=== PATIENT | female | born 1980 | race Caucasian/White ===

== ENCOUNTER 2019-11-22 04:37 | Inpatient (IN) | payer MEDICAID, OTHER ==
[2019-11-22] MEDS ORDERED: Dextrose 50% Abboject 50 ML SYRINGE SLOW IVP PRN (05:12)
[2019-11-22] MEDS ORDERED: Dextrose 5% in Water 1,000 ML IV PRN (05:12)
[2019-11-22] MEDS ORDERED: Nystatin Cream 30 GM TUBE TOP SCH (05:30)
[2019-11-22] MEDS ORDERED: Terbinafine 250 MG TAB PO SCH (06:00)
[2019-11-22] MEDS ORDERED: Acetaminophen 325 MG TAB PO PRN (06:41)
[2019-11-22] MEDS: Morphine 2 MG/ML SYRINGE SLOW IVP PRN ×3 (06:56→20:13)
[2019-11-22 07:32] VITALS: BMI 43.0
[2019-11-22] MEDS ORDERED: Aztreonam 1 GM in Sodium Chloride 0.9% 100 ML IVPB SCH (09:45)
[2019-11-22 10:05] LABS: #Eosinphils 0.2 thou/uL (0.0-0.7); #Lymphocytes 2.3 thou/uL (1.20-3.40); #Monocytes 0.5 thou/uL (0.11-0.59); #Neutrophils 6.9 thou/uL (1.40-6.50); %Basophils 0.2 % (0.0-1.0); %Lymphocytes 23.4 % (21.0-51.0); %Monocytes 4.5 % (0.0-10.0); %Neutrophils 69.8 % (42.0-75.0); Hemoglobin 12.8 g/dL (12.0-16.0); Mean Corpuscular HGB CONC 31.6 g/dL (32.0-36.0); Mean Corpuscular Hemoglobin 26.4 pg (27.0-31.0); Mean Corpuscular Volume 83.6 fL (78.0-98.0); Mean Platelet Volume 10.6 fL (7.4-10.4); Platelet Count 206 thou/uL (130-400); RBC Distribution Width 14.6 % (11.5-14.5); Red Blood Cell (RBC) Count 4.86 mill/uL (4.20-5.40); White Blood Cell (WBC) Count 9.9 thou/uL (4.8-10.8)
[2019-11-22 10:24] LABS: Anion Gap 12 mmol/L (10-20); BUN (Urea Nitrogen) 5 mg/dL (7.0-18.7); Calc. Creatinine Clearance 209 mL/min (70-130); Calcium 9.6 mg/dL (7.8-10.44); Carbon Dioxide 23 mmol/L (22-29); Chloride 102 mmol/L (98-107); Estimated GFR-MDRD Greater than 90; Glucose 437 mg/dL (70-105); Potassium 3.8 mmol/L (3.5-5.1); Sodium 133 mmol/L (136-145)
[2019-11-22] MEDS: HumaLOG 300 UNITS/3 ML VIAL SC PRN ×3 (13:00→20:18)
[2019-11-22] MEDS ORDERED: metroNIDAZOLE 500 MG in Premix Bag 1 BAG IVPB SCH (14:00)
[2019-11-22] MEDS: Pregabalin 50 MG CAP PO SCH ×2 (14:06→20:17)
[2019-11-22] MEDS: Clindamycin/D5W 900 MG in Premix Bag 1 BAG IVPB SCH ×2 (14:08→20:37)
[2019-11-22] MEDS ORDERED: PREGABALIN 200 MG PO SCH (15:00)
[2019-11-22] MEDS: HYDROcodone/Acetaminophen 5/325 mg Tablet PO PRN (15:40)
[2019-11-22] MEDS: Divalproex Sodium DR 500 MG TAB PO SCH (20:16)
[2019-11-22] MEDS: Amitriptyline HCl 25 MG TAB PO SCH (20:16)
[2019-11-22] MEDS: chlorproMAZINE HCl 25 MG TAB PO SCH (20:17)
[2019-11-22] MEDS: Aztreonam 1 GM in Sodium Chloride 0.9% 100 ML IVPB SCH (20:18)
--- NOTE | 2019-11-22 20:23 | PDOC.HHP ---
Hospitalist HPI - History of Present Illness Reddnessaround the vaginal area History of Present Illness: This patient is a 39-year-old female with past medical history of diabetes mellitus, migraine, fibromyalgia, and bipolar disorder who presented to the hospital with complaints of redness, swelling, and pain in the perineal area that has been progressing over the past several weeks. The patient denies fevers or chills. She was diagnosed by her regular doctor with a fungal infection and completed a course of Diflucan without improvement in her symptoms. Hospitalist ROS - Review of Systems All other systems reviewed; all pertinent +/- noted in HPI/Subj - Medication Medications: Active Medications Generic Name Dose Route Start Last Admin Trade Name Freq PRN Reason Stop Dose Admin Hydrocodone Bitart/Acetaminophen 1 tab 11/22/19 12:16 11/22/19 15:40 Axis 5/325 PO 1 tab Q4H PRN Administration Pain Amitriptyline HCl 25 mg 11/22/19 21:00 11/22/19 20:16 Elavil PO 25 mg HS NICOLA Administration Chlorpromazine HCl 75 mg 11/22/19 21:00 11/22/19 20:17 Thorazine PO 75 mg HS NICOLA Administration Divalproex Sodium 500 mg 11/22/19 21:00 11/22/19 20:16 Depakote PO 500 mg HS NICOLA Administration Aztreonam 1 gm/ Sodium 100 mls @ 100 mls/hr 11/22/19 21:00 11/22/19 20:18 Chloride IVPB 100 mls Q12HR NICOLA Administration Clindamycin Phosphate/Dextrose 50 mls @ 100 mls/hr 11/22/19 14:00 11/22/19 14 :08 900 mg/ Device IVPB 50 mls Q8HR NICOLA Administration Insulin Human Lispro 0 units 11/22/19 05:12 11/22/19 20:18 Humalog SC 11 unit .AGGRESSIVE SLIDING PRN Administration Aggressive Correctional Scale Morphine Sulfate 2 mg 11/22/19 06:41 11/22/19 20:13 Morphine SLOW IVP 2 mg Q4H PRN Administration Moderate to Severe Pain (4-10) Pregabalin 200 mg 11/22/19 15:00 11/22/19 20:17 Lyrica PO 200 mg TID NICOLA Administration Trazodone HCl 150 mg 11/22/19 21:00 11/22/19 20:16 Desyrel PO 150 mg HS NICOLA Administration Ziprasidone 160 mg 11/22/19 21:00 11/22/19 20:16 Geodon PO 160 mg HS NICOLA Administration Hospitalist History - Past Medical History Endocrine: reports: Diabetes - Past Surgical History Past Surgical History: reports: Cholecystectomy, - Family History Family History: reports: no pertinent history - Social History Smoking Status: Never smoker Alcohol: reports: None Drugs: reports: none - Exam General Appearance: awake alert ENT: normocephalic atraumatic Neck: supple Heart: RRR, no murmur, no gallops, no rubs Respiratory: CTAB, no wheezes, no rales, no ronchi Gastrointestinal: soft, non-tender Skin - other findings: Redness and swelling is present underneath the lower abdominal folds, perin Hospitalist Results - Labs Result Diagrams: 11/22/19 09:54 11/22/19 09:54 Lab results: WBC 9.9 thou/uL (4.8-10.8) 11/22/19 09:54 Hgb 12.8 g/dL (12.0-16.0) 11/22/19 09:54 Hct 40.6 % (36.0-47.0) 11/22/19 09:54 MCV 83.6 fL (78.0-98.0) 11/22/19 09:54 Plt Count 206 thou/uL (130-400) 11/22/19 09:54 Neutrophils % 69.8 % (42.0-75.0) 11/22/19 09:54 Sodium 133 mmol/L (136-145) L 11/22/19 09:54 Potassium 3.8 mmol/L (3.5-5.1) 11/22/19 09:54 Chloride 102 mmol/L (98-107) 11/22/19 09:54 Carbon Dioxide 23 mmol/L (22-29) 11/22/19 09:54 BUN 5 mg/dL (7.0-18.7) L 11/22/19 09:54 Creatinine 0.69 mg/dL (0.6-1.1) 11/22/19 09:54 Glucose 437 mg/dL (70-105) H 11/22/19 09:54 Calcium 9.6 mg/dL (7.8-10.44) 11/22/19 09:54 Hospitalist H&P A/P - Problem (1) Cellulitis of perineum Code(s): L03.315 - CELLULITIS OF PERINEUM Status: Acute (2) Intertriginous candidiasis Code(s): B37.2 - CANDIDIASIS OF SKIN AND NAIL Status: Acute (3) DM2 (diabetes mellitus, type 2) Status: Acute - Plan Plan: This appears to be a severe case of Izabella intertrigo with super imposed cellulitis complicated by diabetes mellitus. Clindamycin and aztreonam were initiated. Fluconazole and nystatin cream for Izabella. Insulin per sliding scale for diabetes.
[2019-11-22] MEDS ORDERED: traZODone HCl 150 MG TAB PO SCH (21:00)
[2019-11-23] MEDS: Clindamycin/D5W 900 MG in Premix Bag 1 BAG IVPB SCH ×3 (06:02→21:16)
[2019-11-23] MEDS: HumaLOG 300 UNITS/3 ML VIAL SC PRN ×3 (06:02→18:39)
[2019-11-23 06:05] LABS: #Eosinphils 0.2 thou/uL (0.0-0.7); #Lymphocytes 2.2 thou/uL (1.20-3.40); #Monocytes 0.4 thou/uL (0.11-0.59); #Neutrophils 5.4 thou/uL (1.40-6.50); %Basophils 0.6 % (0.0-1.0); %Eosinophils 2.5 % (0.0-10.0); %Lymphocytes 26.7 % (21.0-51.0); %Monocytes 5.2 % (0.0-10.0); %Neutrophils 65.1 % (42.0-75.0); Hemoglobin 12.6 g/dL (12.0-16.0); Mean Corpuscular HGB CONC 33.5 g/dL (32.0-36.0); Mean Corpuscular Hemoglobin 27.3 pg (27.0-31.0); Mean Corpuscular Volume 81.5 fL (78.0-98.0); Mean Platelet Volume 10.8 fL (7.4-10.4); Platelet Count 183 thou/uL (130-400); RBC Distribution Width 14.4 % (11.5-14.5); Red Blood Cell (RBC) Count 4.61 mill/uL (4.20-5.40); White Blood Cell (WBC) Count 8.3 thou/uL (4.8-10.8)
[2019-11-23 06:24] LABS: Anion Gap 11 mmol/L (10-20); BUN (Urea Nitrogen) 6 mg/dL (7.0-18.7); Calc. Creatinine Clearance 219 mL/min (70-130); Calcium 10.2 mg/dL (7.8-10.44); Carbon Dioxide 23 mmol/L (22-29); Chloride 105 mmol/L (98-107); Estimated GFR-MDRD Greater than 90; Glucose 350 mg/dL (70-105); Sodium 135 mmol/L (136-145)
[2019-11-23] MEDS: Aztreonam 1 GM in Sodium Chloride 0.9% 100 ML IVPB SCH ×2 (09:13→21:15)
[2019-11-23] MEDS: Terbinafine 250 MG TAB PO SCH (09:14)
[2019-11-23] MEDS: Fluconazole 100 MG TAB PO SCH (09:14)
[2019-11-23] MEDS: Enoxaparin Sodium 40 MG/0.4 ML SYRINGE SC SCH (09:14)
[2019-11-23] MEDS: Lisinopril 10 MG TAB PO SCH (09:14)
[2019-11-23] MEDS: Pregabalin 50 MG CAP PO SCH ×3 (09:22→21:14)
[2019-11-23] MEDS ORDERED: Insulin Glargine 50 UNITS in Pre-Filled Syringe 1 EACH SC SCH (13:15)
[2019-11-23] MEDS: Insulin Glargine 50 UNITS in Pre-Filled Syringe 1 EACH SC SCH ×2 (14:35→21:25)
[2019-11-23] MEDS: HYDROcodone/Acetaminophen 5/325 mg Tablet PO PRN (14:42)
--- NOTE | 2019-11-23 14:53 | PDOC.HOSPP ---
- Subjective Encounter Date: 11/23/19 Subjective: Pelvic area redness, swelling, and tenderness are improving. - Objective Vital Signs & Weight: Vital Signs (12 hours) Temp Pulse Resp BP BP Pulse Ox 11/23/19 11:24 97.8 F 88 20 114/74 93 L 11/23/19 09:25 93 L 11/23/19 09:15 93 L 11/23/19 09:14 114/69 11/23/19 07:19 98.3 F 93 20 114/69 91 L Weight Weight 267 lb I&O: 11/22/19 11/23/19 11/24/19 06:59 06:59 06:59 Intake Total 1590 Balance 1590 Result Diagrams: 11/23/19 05:33 11/23/19 05:33 Additional Labs: Accuchecks 11/23/19 11/23/19 11/22/19 11:33 04:35 20:01 POC Glucose 390 H 346 H 348 H 11/22/19 16:32 POC Glucose 344 H Hospitalist ROS - Medication Medications: Active Medications Generic Name Dose Route Start Last Admin Trade Name Freq PRN Reason Stop Dose Admin Hydrocodone Bitart/Acetaminophen 1 tab 11/22/19 12:16 11/23/19 14:42 [place] 5/325 PO 1 tab Q4H PRN Administration Pain Amitriptyline HCl 25 mg 11/22/19 21:00 11/22/19 20:16 Elavil PO 25 mg HS NICOLA Administration Chlorpromazine HCl 75 mg 11/22/19 21:00 11/22/19 20:17 Thorazine PO 75 mg HS NICOLA Administration Divalproex Sodium 500 mg 11/22/19 21:00 11/22/19 20:16 Depakote PO 500 mg HS NICOLA Administration Enoxaparin Sodium 40 mg 11/23/19 09:00 11/23/19 09:14 Lovenox SC Not Given 09 NICOLA Fluconazole 100 mg 11/23/19 09:00 11/23/19 09:14 Diflucan PO 100 mg DAILY NICOLA Administration Aztreonam 1 gm/ Sodium 100 mls @ 100 mls/hr 11/22/19 21:00 11/23/19 09:13 Chloride IVPB 100 mls Q12HR NICOLA Administration Clindamycin Phosphate/Dextrose 50 mls @ 100 mls/hr 11/22/19 14:00 11/23/19 14 :32 900 mg/ Device IVPB 50 mls Q8HR NICOLA Administration Insulin Glargine 50 units/ 0.5 mls @ 0 mls/hr 11/24/19 09:00 11/23/19 14:35 Miscellaneous Medication SC 0.5 mls QAM NICOLA Administration Insulin Glargine 50 units/ 0.5 mls @ 0 mls/hr 11/23/19 13:15 11/23/19 14:36 Miscellaneous Medication SC 11/23/19 15:00 Not Given [facility] Insulin Human Lispro 0 units 11/22/19 05:12 11/23/19 12:33 Humalog SC 13 unit .AGGRESSIVE SLIDING PRN Administration Aggressive Correctional Scale Lisinopril 10 mg 11/23/19 09:00 11/23/19 09:14 Zestril PO 10 mg DAILY NICOLA Administration Morphine Sulfate 2 mg 11/22/19 06:41 11/22/19 20:13 Morphine SLOW IVP 2 mg Q4H PRN Administration Moderate to Severe Pain (4-10) Pregabalin 200 mg 11/22/19 15:00 11/23/19 14:31 Lyrica PO 200 mg TID NICOLA Administration Sodium Chloride 10 ml 11/22/19 21:00 11/23/19 09:13 Flush - Normal Saline IVF 10 ml Q12HR NICOLA Administration Terbinafine HCl 250 mg 11/23/19 09:00 11/23/19 09:14 Lamisil PO 12/05/19 09:01 250 mg DAILY NICOLA Administration Trazodone HCl 150 mg 11/22/19 21:00 11/22/19 20:16 Desyrel PO 150 mg HS NICOLA Administration Ziprasidone 160 mg 11/22/19 21:00 11/22/19 20:16 Geodon PO 160 mg HS NICOLA Administration - Exam General Appearance: awake alert Eye: PERRL ENT: normocephalic atraumatic, no oropharyngeal lesions Neck: supple, no JVD Heart: RRR Respiratory: CTAB Gastrointestinal: soft, non-tender, non-distended Neurological: cranial nerve grossly intact, no weakness Hosp A/P (1) Cellulitis of perineum Code(s): L03.315 - CELLULITIS OF PERINEUM Status: Acute (2) Intertriginous candidiasis Code(s): B37.2 - CANDIDIASIS OF SKIN AND NAIL Status: Acute (3) DM2 (diabetes mellitus, type 2) Status: Acute - Plan * Cellulites improving. No evidence of sepsis. Continue current broad spectrum antibiotics and antifungals. * Uncntrolled sugar levels. Restart Lantus 50u BID. *DVT ppx with lovenox. * Ambulation encouraged. * The patient was reportedly drowsey this morning. DC night time trazodone.
[2019-11-23] MEDS: Amitriptyline HCl 25 MG TAB PO SCH (21:15)
[2019-11-23] MEDS: Morphine 2 MG/ML SYRINGE SLOW IVP PRN (21:15)
[2019-11-23] MEDS: chlorproMAZINE HCl 25 MG TAB PO SCH (22:11)
[2019-11-23] MEDS: Divalproex Sodium DR 500 MG TAB PO SCH (22:11)
[2019-11-24] MEDS: Clindamycin/D5W 900 MG in Premix Bag 1 BAG IVPB SCH ×3 (06:21→21:21)
[2019-11-24] MEDS: HumaLOG 300 UNITS/3 ML VIAL SC PRN ×3 (06:23→17:57)
[2019-11-24] MEDS: Fluconazole 100 MG TAB PO SCH (09:52)
[2019-11-24] MEDS: Aztreonam 1 GM in Sodium Chloride 0.9% 100 ML IVPB SCH ×2 (09:52→21:21)
[2019-11-24] MEDS: Lisinopril 10 MG TAB PO SCH (09:52)
[2019-11-24] MEDS: Insulin Glargine 50 UNITS in Pre-Filled Syringe 1 EACH SC SCH ×2 (09:53→21:22)
[2019-11-24] MEDS: Terbinafine 250 MG TAB PO SCH (09:53)
[2019-11-24] MEDS: Pregabalin 50 MG CAP PO SCH ×3 (09:54→21:19)
[2019-11-24] MEDS: Enoxaparin Sodium 40 MG/0.4 ML SYRINGE SC SCH (09:54)
--- NOTE | 2019-11-24 13:50 | PDOC.HOSPP ---
- Subjective Encounter Date: 11/24/19 Subjective: Feeling better. Still has severe dysuria. Ambulating now. Was not able to before because of pain. Says her blood sugar at home was generally over 400. Says she has only had DM for a year and her doctor is still trying to find the right insulin regimen. Cannot take metformin. Has not tried other pills. Her doc has Rx'd a pill, but she hasn't picked it up yet and she doesn't know what it is. - Objective Vital Signs & Weight: Vital Signs (12 hours) Temp Pulse Resp BP BP Pulse Ox 11/24/19 09:52 122/80 11/24/19 08:00 93 L 11/24/19 07:36 97.8 F 101 H 20 122/80 93 L Weight Weight 267 lb I&O: 11/23/19 11/24/19 11/25/19 06:59 06:59 06:59 Intake Total 1590 1650 240 Balance 1590 1650 240 Result Diagrams: 11/23/19 05:33 11/23/19 05:33 Additional Labs: Accuchecks 11/24/19 11/24/19 11/23/19 11:32 06:27 21:08 POC Glucose 260 H 323 H 351 H 11/23/19 16:11 POC Glucose 331 H Hospitalist ROS - Medication Medications: Active Medications Generic Name Dose Route Start Last Admin Trade Name Freq PRN Reason Stop Dose Admin Hydrocodone Bitart/Acetaminophen 1 tab 11/22/19 12:16 11/23/19 14:42 [place] 5/325 PO 1 tab Q4H PRN Administration Pain Amitriptyline HCl 25 mg 11/22/19 21:00 11/23/19 21:15 Elavil PO 25 mg HS NICOLA Administration Chlorpromazine HCl 75 mg 11/22/19 21:00 11/23/19 22:11 Thorazine PO Not Given HS NICOLA Divalproex Sodium 500 mg 11/22/19 21:00 11/23/19 22:11 Depakote PO Not Given HS NICOLA Enoxaparin Sodium 40 mg 11/23/19 09:00 11/24/19 09:54 Lovenox SC Not Given 0900 NICOLA Fluconazole 100 mg 11/23/19 09:00 11/24/19 09:52 Diflucan PO 100 mg DAILY NICOLA Administration Aztreonam 1 gm/ Sodium 100 mls @ 100 mls/hr 11/22/19 21:00 11/24/19 09:52 Chloride IVPB 100 mls Q12HR NICOLA Administration Clindamycin Phosphate/Dextrose 50 mls @ 100 mls/hr 11/22/19 14:00 11/24/19 06 :21 900 mg/ Device IVPB 50 mls Q8HR NICOLA Administration Insulin Glargine 50 units/ 0.5 mls @ 0 mls/hr 11/23/19 21:00 11/23/19 21:25 Miscellaneous Medication SC 0.5 mls HS NICOLA Administration Insulin Glargine 50 units/ 0.5 mls @ 0 mls/hr 11/24/19 09:00 11/24/19 09:53 Miscellaneous Medication SC 0.5 mls QAM NICOLA Administration Insulin Human Lispro 0 units 11/22/19 05:12 11/24/19 12:12 Humalog SC 9 unit .AGGRESSIVE SLIDING PRN Administration Aggressive Correctional Scale Lisinopril 10 mg 11/23/19 09:00 11/24/19 09:52 Zestril PO 10 mg DAILY NICOLA Administration Morphine Sulfate 2 mg 11/22/19 06:41 11/23/19 21:15 Morphine SLOW IVP 2 mg Q4H PRN Administration Moderate to Severe Pain (4-10) Pregabalin 200 mg 11/22/19 15:00 11/24/19 09:54 Lyrica PO 200 mg TID NICOLA Administration Sodium Chloride 10 ml 11/22/19 21:00 11/24/19 09:54 Flush - Normal Saline IVF 10 ml Q12HR NICOLA Administration Terbinafine HCl 250 mg 11/23/19 09:00 11/24/19 09:53 Lamisil PO 12/05/19 09:01 250 mg DAILY NICOLA Administration Ziprasidone 160 mg 11/22/19 21:00 11/23/19 21:14 Geodon PO 160 mg HS NICOLA Administration - Exam General Appearance: NAD, awake alert General - other findings: morbidly obese. Skin - other findings: perineum, skin folds with persistent erythema and mucoid secretions Musculoskeletal: normal tone, normal strength, no muscle wasting Psychiatric: normal affect, normal behavior, A&O x 3 Hosp A/P (1) Cellulitis of perineum Code(s): L03.315 - CELLULITIS OF PERINEUM Status: Acute (2) DM2 (diabetes mellitus, type 2) Status: Acute (3) Intertriginous candidiasis Code(s): B37.2 - CANDIDIASIS OF SKIN AND NAIL Status: Acute - Plan Looks like she is improving. Continue IV abx today. Has slightly improving blood glucose. Continue Lantus 50 bid and aggressive SSI. May see if we can get the name of what her PCP rx'd as an oral option.
[2019-11-24] MEDS: HYDROcodone/Acetaminophen 5/325 mg Tablet PO PRN ×3 (14:12→21:23)
[2019-11-24] MEDS: Amitriptyline HCl 25 MG TAB PO SCH (21:20)
[2019-11-24] MEDS: Divalproex Sodium DR 500 MG TAB PO SCH (21:20)
[2019-11-24] MEDS: chlorproMAZINE HCl 25 MG TAB PO SCH (21:20)
[2019-11-25] MEDS: Morphine 2 MG/ML SYRINGE SLOW IVP PRN (02:04)
[2019-11-25] MEDS: Clindamycin/D5W 900 MG in Premix Bag 1 BAG IVPB SCH (05:27)
[2019-11-25] MEDS: HumaLOG 300 UNITS/3 ML VIAL SC PRN ×2 (05:28→11:47)
[2019-11-25] MEDS: HYDROcodone/Acetaminophen 5/325 mg Tablet PO PRN (05:33)
[2019-11-25 07:54] VITALS: BP 140/87; TEMP 97.9
[2019-11-25] MEDS: Pregabalin 50 MG CAP PO SCH (09:28)
[2019-11-25] MEDS: Fluconazole 100 MG TAB PO SCH (09:28)
[2019-11-25] MEDS: Lisinopril 10 MG TAB PO SCH (09:29)
[2019-11-25] MEDS: Terbinafine 250 MG TAB PO SCH (09:29)
[2019-11-25] MEDS: Aztreonam 1 GM in Sodium Chloride 0.9% 100 ML IVPB SCH (09:29)
[2019-11-25] MEDS: Enoxaparin Sodium 40 MG/0.4 ML SYRINGE SC SCH (09:29)
[2019-11-25] MEDS: Insulin Glargine 50 UNITS in Pre-Filled Syringe 1 EACH SC SCH (09:30)
--- NOTE | 2019-11-27 03:53 | PQF ---
PRIMO CHILDS DAVID R MD [id number] CLINICAL DOCUMENTATION CLARIFICATION FORM: POST DISCHARGE Addendum to original discharge summary date: ____ Late entry note date: __ DATE: 11/27/2019 ATTN: Burt Marti Please exercise your independent, professional judgment in responding to the clarification form. Clinical indicators are provided on the bottom of this form for your review Please check appropriate box(s): Cellulitis of perineum: [ ] Due to Intertriginous Candidiasis [ ] Due to Diabetes [ ] Other diagnosis [ ] Unable to determine For continuity of documentation, please document condition throughout progress notes and discharge summary. Thank You. CLINICAL INDICATORS - SIGNS / SYMPTOMS / LABS Blood Glucose Level 11/22 397; 344; 348; 346 ED Notes p1 11/22 consistent with cellulitis in her vaginal area. Patient states vaginal irritation ED Notes p1 11/22 Patient reports pain and redness. Possible mechanism rash Hospitalist H&P p1 11/22 Dr Monet presented to the hospital with complaints of redness, swelling and pain in perineal area that had been progressing over the past several weeks Hospitalist H&P p1 11/22 Dr Monet She was diagnosed by her regular doctor with fungal infection and completed course of Diflucan without improvement in her symptoms Hospitalist H&P p5 11/22 Dr Monet This appears to be severe case of teresa intertrigo with superimposed cellulitis complicated by DM PN p6 11/23 Dr Coles Cellulitis improving. No evidence of Sepsis RISKS: ED Notes p1 11/22 - Smoker ED Notes p3 11/22 Morbid Obesity Hospitalist H&P p1 11/22 DM Hospitalist H&P p1 11/22 Bipolar disorder Hospitalist H&P p5 11/22 Cellulitis of Perineum Hospitalist H&P p5 11/22 Intertriginous Candidiasis TREATMENT: DEC 02 IV Clindamycin 50mls DEC 02 Diflucan 100mg po DEC 02 Humalog 13 units SC DEC 02 IV Morphine 2mg DEC 02 Mycostatin Cream 30gm DEC 02 IVF 1L DEC 02 Lamisil 250 mg po (This form is maintained as a part of the permanent medical record) 2014 [employer]. All Rights Reserved [email or web address]
== END 2019-11-25 12:11 | disposition home or self-care (01) | DRG 603 ==
LOC: ERS 04:37 → T4-A 05:11
PROVIDERS: ADMIT Internal Medicine Sleep Medicine; ATTEND Internal Medicine
DX: L03.315 Cellulitis of perineum (principal); Z68.41 Body mass index [BMI] 40.0-44.9, adult; F31.9 Bipolar disorder, unspecified; G43.909 Migraine, unspecified, not intractable, without status migrainosus; M79.7 Fibromyalgia; E66.01 Morbid (severe) obesity due to excess calories; B37.2 Candidiasis of skin and nail; E11.65 Type 2 diabetes mellitus with hyperglycemia; Z79.899 Other long term (current) drug therapy; Z90.49 Acquired absence of other specified parts of digestive tract
CPT/HCPCS: 36415; 36416; 80048; 85025; 99284; J1815; J2270; J3490; Q0161